=== PATIENT | female | born 2000 | race Two or more races ===

== ENCOUNTER 2020-11-16 22:24 | Emergency (ER) | payer OTHER ==
[2020-11-16 22:30] VITALS: BP 100/76; PULSE 84; TEMP 98; BMI 16.9
== END 2020-11-16 23:50 | disposition home or self-care (01) ==
LOC: FER 22:24
DX: R10.2 Pelvic and perineal pain (principal)
CPT/HCPCS: 81003; 87086; 99283-25

== ENCOUNTER 2021-04-27 00:26 | Emergency (ER) | payer OTHER ==
[2021-04-27 00:58] VITALS: BP 112/64; PULSE 80; TEMP 98.2; BMI 17.2
== END 2021-04-27 01:24 | disposition home or self-care (01) ==
LOC: FER 00:26
DX: R07.89 Other chest pain (principal)
CPT/HCPCS: 99281-25